=== PATIENT | male | born 1965 | race American Indian/Alaskan Native ===

== ENCOUNTER 2021-10-23 02:59 | Emergency (ER) | payer MEDICAID ==
--- NOTE | 2021-10-23 03:09 | EDM.PDOC ---
<Bjorn Antunez G - Last Filed: 10/23/21 10:03> ED HPI GENERAL MEDICAL PROBLEM - General Chief Complaint: General Stated Complaint: [facility] Time Seen by Provider: 10/23/21 03:00 - Related Data Allergies Allergy/AdvReac Type Severity Reaction Status Date / Time No Known Allergies Allergy Verified 10/23/21 03:08 Home Meds: Home Meds Aspirin [Adult Low Dose Aspirin EC] 81 mg PO DAILY 10/23/21 [History] Cyclobenzaprine [Flexeril] 10 mg PO TID PRN 10/23/21 [History] DULoxetine [Cymbalta] 60 mg PO DAILY 10/23/21 [History] Ferrous Sulfate 325 mg PO DAILY 10/23/21 [History] Fluticasone Propionate [Flovent] 2 puff IH DAILY 10/23/21 [History] Insulin Aspart [NovoLOG] 10 unit SQ WITHMEALSANDBED 10/23/21 [History] Insulin Glargine,Hum.Rec.Anlog [Lantus Solostar] 106 unit SQ ASDIRECTED 10/23/21 [History] Loperamide [Imodium] 2 mg PO Q4H PRN 10/23/21 [History] Magnesium Oxide 400 mg PO DAILY 10/23/21 [History] Melatonin 5 mg PO BEDTIME 10/23/21 [History] Metoprolol Succinate [Toprol XL] 25 mg PO DAILY 10/23/21 [History] Naproxen 500 mg PO DAILY PRN 10/23/21 [History] Rivaroxaban [Xarelto] 20 mg PO DAILY 10/23/21 [History] Rosuvastatin [Crestor] 10 mg PO DAILY 10/23/21 [History] SitaGLIPtin [Januvia] 100 mg PO DAILY 10/23/21 [History] Tamsulosin [Tamsulosin 24 Hr] 0.4 mg PO DAILY 10/23/21 [History] Telmisartan 80 mg PO DAILY 10/23/21 [History] dilTIAZem HCL [Cartia Xt] 120 mg PO DAILY 10/23/21 [History] metFORMIN [Glucophage] 500 mg PO BIDMEALS 10/23/21 [History] oxyCODONE HCl/Acetaminophen [Oxycodone-Acetaminophen 5-325] 1 tab PO BEDTIME 10/23/21 [History] Course - Re-Assessments/Exams Free Text/Narrative Re-Assessment/Exam: 10/23/21 10:03 Gave another dose of regular insulin 14 units sc for persistently elevated BS. Gave a Novolog Pen to take home as there were no pharmacies open and he was nearly out. Family here to burr pick[place]. Departure - Departure Time of Disposition: 10:05 Disposition: Home, Self-Care 01 Clinical Impression: Hyperglycemia, Poorly controlled type 2 diabetes mellitus, Anemia of chronic disease - Discharge Information *PRESCRIPTION DRUG MONITORING PROGRAM REVIEWED*: Not Applicable *COPY OF PRESCRIPTION DRUG MONITORING REPORT IN PATIENT RAH: Not Applicable Instructions: Type 2 Diabetes Mellitus, Diagnosis, Adult Referrals: PCP,None [Primary Care Provider] - Forms: ED Department Discharge Care Plan Goals: It is very important that you follow your medication regimen as prescribed, including your iron pills and insulin. Establish a primary provider in this area as soon as possible. <Richard Melton - Last Filed: 10/23/21 22:09> ED HPI GENERAL MEDICAL PROBLEM - General Source of Information: Reports: Patient, EMS History Limitations: Reports: No Limitations - History of Present Illness INITIAL COMMENTS - FREE TEXT/NARRATIVE: 56-year-old male with longstanding poorly controlled diabetes, presents with hyperglycemia, back spasms and pain in his right hip and leg after forgetting to take his insulin twice daily. He arrives sleepy, mildly hyperventilating, but no fever or chills. O2 saturations are 100%. He was given a 500 cc bolus of fluid and his glucometer checks are "high". He does not usually forget to take his insulin, he does not think he has ever had diabetic ketoacidosis before. After additional history was obtained, we discovered that he was just discharged from [place] 5 days ago after being an inpatient for urosepsis. His family brought him up to [place] to take care of him. Despite his personal history that he is compliant, and reviewing his records from [place] it indicates that he is likely very noncompliant. His hemoglobin on discharge was 8.7. His glucoses were running in the 130s to 200. Onset: Gradual Duration: Hour(s): (Symptoms developed over the last 6 hours) Treatments [employer] COMMUNICATIONS SPECIALIST: Reports: Isotonic Fluid, IV/IO, See EMS Report Generalized Pain Score (Numeric/FACES): 9 ED ROS GENERAL - Review of Systems Review Of Systems: See Below Constitutional: Reports: Malaise, Decreased Appetite. Denies: Fever, Chills HEENT: Denies: Vision Change Respiratory: Denies: Shortness of Breath Cardiovascular: Denies: Chest Pain GI/Abdominal: Reports: Abdominal Pain, Other (Patient has colostomy in place that appears to be working) : Reports: No Symptoms Musculoskeletal: Reports: Back Pain, Leg Pain (Right-sided leg and hip pain) Skin: Reports: Other (Open abrasion around his fingernail on the left hand) Neurological: Reports: Dizziness, Weakness. Denies: Headache ED EXAM, GENERAL - Physical Exam Exam: See Below Exam Limited By: No Limitations General Appearance: Alert, No Apparent Distress, Other (Looks uncomfortable but not distressed) Eye Exam: Right Eye: Other (Conjunctiva are pale,) Throat/Mouth: Normal Inspection Head: Atraumatic Respiratory/Chest: No Respiratory Distress, Lungs Clear Cardiovascular: Regular Rate, Rhythm. No: Extra Beats GI/Abdominal: Tender (Diffuse tenderness to palpation, no focal tenderness) Extremities: Other (Partially amputated left foot, well-healed surgical scars) Neurological: Alert, Oriented Psychiatric: Depressed Mood, Flat Affect Skin Exam: Warm, Dry Course - Vital Signs Last Recorded V/S: Last Vital Signs Temp 97 F 10/23/21 07:08 Pulse 121 H 10/23/21 06:11 Resp 30 H 10/23/21 06:11 BP 111/59 L 10/23/21 07:08 Pulse Ox 98 10/23/21 06:11 - Orders/Labs/Meds Labs: Laboratory Tests 10/23/21 10/23/21 10/23/21 Range/Units 03:01 03:22 03:22 WBC 25.5 H (4.5-11.0) K/uL RBC 2.93 L (4.30-5.90) M/uL Hgb 7.7 L (12.0-15.0) g/dL Hct 25.8 L (40.0-54.0) % MCV 88 (80-98) fL MCH 26 L (27-31) pg MCHC 30 L (32-36) % Plt Count 624 H (150-400) K/uL Neut % (Auto) 83.4 H (36-66) % Lymph % (Auto) 13.3 L (24-44) % Mccone % (Auto) 2.7 (2-6) % Eos % (Auto) 0.3 L (2-4) % Baso % (Auto) 0.3 (0-1) % Puncture Site Rt brachial ABG pH 7.342 L (7.350-7.450) ABG pCO2 28.8 L (35.0-42.0) mmHg ABG pO2 78.4 (75.0-100.0) mmHg ABG HCO3 15.2 L (22.0-26.0) mmol/L ABG Total CO2 14.8 L (23.0-27.0) mmol/L ABG O2 Saturation 94.5 L (95.0-98.0) % ABG O2 Content 9.1 L (15.0-23.0) %vol ABG Base Excess -9.2 mm/L ABG Hemoglobin 7.0 L (13.5-18.0) g/dL ABG Oxyhemoglobin 91.4 % ABG Carboxyhemoglobin 2.0 H (0.0-1.6) % ABG Methemoglobin 1.3 % Lawson Test N/a O2 Delivery Device Room air Sodium 134 L (140-148) mmol/L Potassium 5.6 H (3.6-5.2) mmol/L Chloride 100 (100-108) mmol/L Carbon Dioxide 20 L (21-32) mmol/L Anion Gap 19.6 H (5.0-14.0) mmol/L BUN 43 H (7-18) mg/dL Creatinine 1.7 H (0.8-1.3) mg/dL Est Cr Clr Drug Dosing 49.10 mL/min Estimated GFR (MDRD) 42 L (>60) Glucose 612 H* (74-106) mg/dL POC Glucose (74-106) mg/dL Calcium 7.3 L (8.5-10.1) mg/dL Total Bilirubin 0.3 (0.2-1.0) mg/dL AST 14 L (15-37) U/L ALT 19 (12-78) U/L Alkaline Phosphatase 114 (46-116) U/L Total Protein 6.1 L (6.4-8.2) g/dL Albumin 1.9 L (3.4-5.0) g/dL Globulin 4.2 H (2.3-3.5) g/dL Albumin/Globulin Ratio 0.5 L (1.2-2.2) Urine Color (YELLOW) Urine Appearance (CLEAR) Urine pH (5.0-8.0) Ur Specific [place] (1.008-1.030) Urine Protein (NEGATIVE) mg/dL Urine Glucose (UA) (NEGATIVE) mg/dL Urine Ketones (NEGATIVE) mg/dL Urine Occult Blood (NEGATIVE) Urine Nitrite (NEGATIVE) Urine Bilirubin (NEGATIVE) Urine Urobilinogen (0.2-1.0) EU/dL Ur Leukocyte Esterase (NEGATIVE) Urine RBC (0-5) Urine WBC (0-5) Ur Epithelial Cells Amorphous Sediment Urine Bacteria Urine Mucus Ketones (NEGATIVE) 10/23/21 10/23/21 10/23/21 Range/Units 03:22 03:22 05:33 WBC (4.5-11.0) K/uL RBC (4.30-5.90) M/uL Hgb (12.0-15.0) g/dL Hct (40.0-54.0) % MCV (80-98) fL MCH (27-31) pg MCHC (32-36) % Plt Count (150-400) K/uL Neut % (Auto) (36-66) % Lymph % (Auto) (24-44) % Mccone % (Auto) (2-6) % Eos % (Auto) (2-4) % Baso % (Auto) (0-1) % Puncture Site ABG pH (7.350-7.450) ABG pCO2 (35.0-42.0) mmHg ABG pO2 (75.0-100.0) mmHg ABG HCO3 (22.0-26.0) mmol/L ABG Total CO2 (23.0-27.0) mmol/L ABG O2 Saturation (95.0-98.0) % ABG O2 Content (15.0-23.0) %vol ABG Base Excess mm/L ABG Hemoglobin (13.5-18.0) g/dL ABG Oxyhemoglobin % ABG Carboxyhemoglobin (0.0-1.6) % ABG Methemoglobin % Lawson Test O2 Delivery Device Sodium (140-148) mmol/L Potassium (3.6-5.2) mmol/L Chloride (100-108) mmol/L Carbon Dioxide (21-32) mmol/L Anion Gap (5.0-14.0) mmol/L BUN (7-18) mg/dL Creatinine (0.8-1.3) mg/dL Est Cr Clr Drug Dosing mL/min Estimated GFR (MDRD) (>60) Glucose (74-106) mg/dL POC Glucose 458 H* (74-106) mg/dL Calcium (8.5-10.1) mg/dL Total Bilirubin (0.2-1.0) mg/dL AST (15-37) U/L ALT (12-78) U/L Alkaline Phosphatase (46-116) U/L Total Protein (6.4-8.2) g/dL Albumin (3.4-5.0) g/dL Globulin (2.3-3.5) g/dL Albumin/Globulin Ratio (1.2-2.2) Urine Color Yellow (YELLOW) Urine Appearance Clear (CLEAR) Urine pH 7.0 (5.0-8.0) Ur Specific [place] 1.025 (1.008-1.030) Urine Protein >=300 H (NEGATIVE) mg/dL Urine Glucose (UA) 500 H (NEGATIVE) mg/dL Urine Ketones Trace H (NEGATIVE) mg/dL Urine Occult Blood Trace-intact H (NEGATIVE) Urine Nitrite Negative (NEGATIVE) Urine Bilirubin Negative (NEGATIVE) Urine Urobilinogen 0.2 (0.2-1.0) EU/dL Ur Leukocyte Esterase Negative (NEGATIVE) Urine RBC 0-5 (0-5) Urine WBC 0-5 (0-5) Ur Epithelial Cells Rare Amorphous Sediment Occasional Urine Bacteria Occasional Urine Mucus Occasional Ketones Negative (NEGATIVE) 10/23/21 10/23/21 10/23/21 Range/Units 06:26 06:28 07:31 WBC (4.5-11.0) K/uL RBC (4.30-5.90) M/uL Hgb (12.0-15.0) g/dL Hct (40.0-54.0) % MCV (80-98) fL MCH (27-31) pg MCHC (32-36) % Plt Count (150-400) K/uL Neut % (Auto) (36-66) % Lymph % (Auto) (24-44) % Mccone % (Auto) (2-6) % Eos % (Auto) (2-4) % Baso % (Auto) (0-1) % Puncture Site ABG pH (7.350-7.450) ABG pCO2 (35.0-42.0) mmHg ABG pO2 (75.0-100.0) mmHg ABG HCO3 (22.0-26.0) mmol/L ABG Total CO2 (23.0-27.0) mmol/L ABG O2 Saturation (95.0-98.0) % ABG O2 Content (15.0-23.0) %vol ABG Base Excess mm/L ABG Hemoglobin (13.5-18.0) g/dL ABG Oxyhemoglobin % ABG Carboxyhemoglobin (0.0-1.6) % ABG Methemoglobin % Lawson Test O2 Delivery Device Sodium (140-148) mmol/L Potassium (3.6-5.2) mmol/L Chloride (100-108) mmol/L Carbon Dioxide (21-32) mmol/L Anion Gap (5.0-14.0) mmol/L BUN (7-18) mg/dL Creatinine (0.8-1.3) mg/dL Est Cr Clr Drug Dosing mL/min Estimated GFR (MDRD) (>60) Glucose (74-106) mg/dL POC Glucose 401 H* 401 H 290 H (74-106) mg/dL Calcium (8.5-10.1) mg/dL Total Bilirubin (0.2-1.0) mg/dL AST (15-37) U/L ALT (12-78) U/L Alkaline Phosphatase (46-116) U/L Total Protein (6.4-8.2) g/dL Albumin (3.4-5.0) g/dL Globulin (2.3-3.5) g/dL Albumin/Globulin Ratio (1.2-2.2) Urine Color (YELLOW) Urine Appearance (CLEAR) Urine pH (5.0-8.0) Ur Specific [place] (1.008-1.030) Urine Protein (NEGATIVE) mg/dL Urine Glucose (UA) (NEGATIVE) mg/dL Urine Ketones (NEGATIVE) mg/dL Urine Occult Blood (NEGATIVE) Urine Nitrite (NEGATIVE) Urine Bilirubin (NEGATIVE) Urine Urobilinogen (0.2-1.0) EU/dL Ur Leukocyte Esterase (NEGATIVE) Urine RBC (0-5) Urine WBC (0-5) Ur Epithelial Cells Amorphous Sediment Urine Bacteria Urine Mucus Ketones (NEGATIVE) 10/23/21 10/23/21 Range/Units 08:39 09:35 WBC (4.5-11.0) K/uL RBC (4.30-5.90) M/uL Hgb (12.0-15.0) g/dL Hct (40.0-54.0) % MCV (80-98) fL MCH (27-31) pg MCHC (32-36) % Plt Count (150-400) K/uL Neut % (Auto) (36-66) % Lymph % (Auto) (24-44) % Mccone % (Auto) (2-6) % Eos % (Auto) (2-4) % Baso % (Auto) (0-1) % Puncture Site ABG pH (7.350-7.450) ABG pCO2 (35.0-42.0) mmHg ABG pO2 (75.0-100.0) mmHg ABG HCO3 (22.0-26.0) mmol/L ABG Total CO2 (23.0-27.0) mmol/L ABG O2 Saturation (95.0-98.0) % ABG O2 Content (15.0-23.0) %vol ABG Base Excess mm/L ABG Hemoglobin (13.5-18.0) g/dL ABG Oxyhemoglobin % ABG Carboxyhemoglobin (0.0-1.6) % ABG Methemoglobin % Lawson Test O2 Delivery Device Sodium (140-148) mmol/L Potassium (3.6-5.2) mmol/L Chloride (100-108) mmol/L Carbon Dioxide (21-32) mmol/L Anion Gap (5.0-14.0) mmol/L BUN (7-18) mg/dL Creatinine (0.8-1.3) mg/dL Est Cr Clr Drug Dosing mL/min Estimated GFR (MDRD) (>60) Glucose (74-106) mg/dL POC Glucose 272 H 273 H (74-106) mg/dL Calcium (8.5-10.1) mg/dL Total Bilirubin (0.2-1.0) mg/dL AST (15-37) U/L ALT (12-78) U/L Alkaline Phosphatase (46-116) U/L Total Protein (6.4-8.2) g/dL Albumin (3.4-5.0) g/dL Globulin (2.3-3.5) g/dL Albumin/Globulin Ratio (1.2-2.2) Urine Color (YELLOW) Urine Appearance (CLEAR) Urine pH (5.0-8.0) Ur Specific [place] (1.008-1.030) Urine Protein (NEGATIVE) mg/dL Urine Glucose (UA) (NEGATIVE) mg/dL Urine Ketones (NEGATIVE) mg/dL Urine Occult Blood (NEGATIVE) Urine Nitrite (NEGATIVE) Urine Bilirubin (NEGATIVE) Urine Urobilinogen (0.2-1.0) EU/dL Ur Leukocyte Esterase (NEGATIVE) Urine RBC (0-5) Urine WBC (0-5) Ur Epithelial Cells Amorphous Sediment Urine Bacteria Urine Mucus Ketones (NEGATIVE) Meds: Medications Discontinued Medications Generic Name Dose Route Start Last Admin Trade Name Freq PRN Reason Stop Dose Admin Dextrose/Water 50 ml 10/23/21 06:51 50% Dextrose In Water 50 Ml Syringe IVPUSH ASDIRECTED PRN Hypoglycemia Dextrose/Water 50 ml 10/23/21 08:44 50% Dextrose In Water 50 Ml Syringe IVPUSH ASDIRECTED PRN Hypoglycemia Glucagon 1 mg 10/23/21 06:51 Glucagon,Human Recombinant 1 Mg Vial IM ASDIRECTED PRN Hypoglycemia Glucagon 1 mg 10/23/21 08:44 Glucagon,Human Recombinant 1 Mg Vial IM ASDIRECTED PRN Hypoglycemia Sodium Chloride 1,000 mls @ 1,000 mls/hr 10/23/21 03:15 10/23/21 04:54 Normal Saline IV 500 mls/hr ASDIRECTED DANIS Administration Insulin Regular in 0.9 % NACL 100 unit in 100 mls @ 14 mls/hr 10/23/21 04:15 10/23/21 04:27 Myxredlin In Ns 100 Unit/100 Ml IV 14 mls/hr ASDIRECTED DANIS Administration Sodium Chloride 1,000 mls @ 500 mls/hr 10/23/21 05:00 Normal Saline IV ASDIRECTED DANIS Insulin Glargine 40 units 10/23/21 04:33 10/23/21 04:49 Insulin Glargine,Human Rec. Analog 100 Units/Ml 3 Ml Pen SUBCUT 10/23/21 04:34 40 units ONETIME ONE Administration Insulin Glargine 80 units 10/23/21 06:47 10/23/21 07:02 Insulin Glargine,Human Rec. Analog 100 Units/Ml 3 Ml Pen SUBCUT 10/23/21 06:48 80 units ONETIME ONE Administration Insulin Human Lispro 14 unit 10/23/21 10:30 10/23/21 10:13 Insulin Lispro 100 Unit/Ml 3 Ml Kwikpen SUBCUT 10/23/21 10:31 14 units ONETIME ONE Administration Insulin Human Regular 14 unit 10/23/21 04:10 10/23/21 04:26 Insulin Regular, Human 100 Units/Ml 3 Ml Vial IVPUSH 10/23/21 04:11 14 units ONETIME ONE Administration Insulin Human Regular 14 unit 10/23/21 06:51 10/23/21 07:01 Insulin Regular, Human 100 Units/Ml 3 Ml Vial IVPUSH 10/23/21 06:52 14 units ONETIME ONE Administration Insulin Human Regular 14 unit 10/23/21 08:44 10/23/21 08:50 Insulin Regular, Human 100 Units/Ml 3 Ml Vial SUBCUT 10/23/21 08:45 14 units ONETIME ONE Administration Sodium Chloride 500 ml 10/23/21 09:00 Sodium Chloride 0.9% 10 Ml Sdv IV TID [facility] - Re-Assessments/Exams Free Text/Narrative Re-Assessment/Exam: 10/23/21 06:53 Patient was evaluated for diabetic ketoacidosis which was not present, ketones were negative, blood gases were stable Patient was given aggressive fluid replacement, given 14 units of IV regular insulin and started on a 14 unit an hour drip. We received more hospital records from [place] and these were reviewed. It is concerning that his white count returned elevated 25,000 and hemoglobin is 7 7, but these are within ranges of where he was running in [place]. He is not febrile at this time. Patient was monitored through the night while on the insulin drip and his glucose normalized. I discussed his condition with his family in the morning, he is not in diabetic ketoacidosis and had hyperglycemia due to noncompliance. I also discussed his condition with the hospitalist service, they felt admission was not required. Care was turned over to Dr. Antunez to continue monitoring until the family arrived to take the patient home.
[2021-10-23] MEDS: Sodium Chloride 0.9% 1,000 ML IV SCH ×2 (03:24→04:54)
[2021-10-23] MEDS ORDERED: Insulin Regular, Human 100 Units/ML 3 ML Vial IVPUSH ONE ×2 (04:10→06:51)
[2021-10-23] MEDS ORDERED: Insulin Glargine,Human Rec. Analog 100 Units/ML 3 ML Pen SUBCUT ONE ×2 (04:33→06:47)
[2021-10-23] MEDS ORDERED: Sodium Chloride 0.9% 1,000 ML IV SCH (05:00)
[2021-10-23] MEDS ORDERED: 50% Dextrose in Water 50 ML Syringe IVPUSH PRN ×2 (06:51→08:44)
[2021-10-23] MEDS ORDERED: Glucagon,Human Recombinant 1 MG Vial IM PRN ×2 (06:51→08:44)
[2021-10-23] MEDS ORDERED: Insulin Regular, Human 100 Units/ML 3 ML Vial SUBCUT ONE (08:44)
[2021-10-23] MEDS ORDERED: Sodium Chloride 0.9% 10 ML SDV IV SCH (09:00)
[2021-10-23] MEDS ORDERED: Insulin Lispro 100 Unit/ML 3 ML KwikPen SUBCUT ONE (10:30)
== END 2021-10-23 10:24 | disposition home or self-care (01) ==
LOC: JP.ED 02:59
DX: E11.65 Type 2 diabetes mellitus with hyperglycemia (principal); E11.22 Type 2 diabetes mellitus with diabetic chronic kidney disease; N18.9 Chronic kidney disease, unspecified; D63.1 Anemia in chronic kidney disease; Z79.82 Long term (current) use of aspirin; Z79.01 Long term (current) use of anticoagulants; Z79.4 Long term (current) use of insulin
CPT/HCPCS: 36415; 36600; 80053; 81001; 82009; 82803; 82947; 85025; 99285; J1815; J7030

== ENCOUNTER 2021-10-24 03:28 | Inpatient (IN) | payer MEDICAID ==
--- NOTE | 2021-10-24 03:53 | EDM.PDOC ---
ED HPI GENERAL MEDICAL PROBLEM - General Stated Complaint: [facility] Time Seen by Provider: 10/24/21 03:30 Source of Information: Reports: Patient, EMS History Limitations: Reports: No Limitations - History of Present Illness INITIAL COMMENTS - FREE TEXT/NARRATIVE: 56-year-old male who is here this morning with hyperglycemia and weakness along with chronic pain issues, was found to have a hemoglobin of 7.7 and an elevated white count but afebrile. He responded well to insulin therapy including a bolus and insulin drip for several hours and was discharged home. He called EMS tonight because he was so dizzy, lightheaded, generalized malaise and his glucose levels were climbing again despite taking his insulin today. His colostomy bag was full again and leaking, it looked dark but he is on iron supplements. He is having his same chronic pain issues. His daughter moved him into the house earlier this week to take care of them but now admits she cannot take care of him because he is too much work. Onset: Unknown/Unsure Worsens with: Reports: Other (Activity causes increased weakness and dizziness) Associated Symptoms: Reports: Malaise, Shortness of Breath (Some shortness of breath with activity), Weakness. Denies: Confusion Right Posterior Buttock Pain Score (Numeric/FACES): 9 - Related Data Allergies Allergy/AdvReac Type Severity Reaction Status Date / Time No Known Allergies Allergy Verified 10/24/21 04:05 Home Meds: Home Meds Aspirin [Adult Low Dose Aspirin EC] 81 mg PO DAILY 10/23/21 [History] Cyclobenzaprine [Flexeril] 10 mg PO TID PRN 10/23/21 [History] DULoxetine [Cymbalta] 60 mg PO DAILY 10/23/21 [History] Ferrous Sulfate 325 mg PO DAILY 10/23/21 [History] Fluticasone Propionate [Flovent] 2 puff IH DAILY 10/23/21 [History] Insulin Aspart [NovoLOG] 10 unit SQ WITHMEALSANDBED 10/23/21 [History] Insulin Glargine,Hum.Rec.Anlog [Lantus Solostar] 106 unit SQ ASDIRECTED 10/23/21 [History] Loperamide [Imodium] 2 mg PO Q4H PRN 10/23/21 [History] Magnesium Oxide 400 mg PO DAILY 10/23/21 [History] Melatonin 5 mg PO BEDTIME 10/23/21 [History] Metoprolol Succinate [Toprol XL] 25 mg PO DAILY 10/23/21 [History] Naproxen 500 mg PO DAILY PRN 10/23/21 [History] Rivaroxaban [Xarelto] 20 mg PO DAILY 10/23/21 [History] Rosuvastatin [Crestor] 10 mg PO DAILY 10/23/21 [History] SitaGLIPtin [Januvia] 100 mg PO DAILY 10/23/21 [History] Tamsulosin [Tamsulosin 24 Hr] 0.4 mg PO DAILY 10/23/21 [History] Telmisartan 80 mg PO DAILY 10/23/21 [History] dilTIAZem HCL [Cartia Xt] 120 mg PO DAILY 10/23/21 [History] metFORMIN [Glucophage] 500 mg PO BIDMEALS 10/23/21 [History] oxyCODONE HCl/Acetaminophen [Oxycodone-Acetaminophen 5-325] 1 tab PO BEDTIME 10/23/21 [History] Past Medical History Cardiovascular History: Reports: Hypertension Genitourinary History: Reports: Diabetic Nephropathy, Other (See Below) Other Genitourinary History: SANG 2020 Musculoskeletal History: Reports: Amputation, Back Pain, Chronic Neurological History: Reports: Neuropathy, Diabetic, TIA Endocrine/Metabolic History: Reports: Diabetes, Type II, IDDM, Obesity/BMI 30+, Other (See Below) Other Endocrine/Metabolic History: Hyponatremia, hypomagnesemia, hypocalcemia 2020 Hematologic History: Reports: Anemia Oncologic (Cancer) History: Reports: Colon Dermatologic History: Reports: Decubitus Ulcer - Infectious Disease History Infectious Disease History: Reports: Chicken Pox, Measles, MRSA, Mumps - Past Surgical History GI Surgical History: Reports: Cholecystectomy, Colostomy, Other (See Below) Musculoskeletal Surgical History: Reports: Amputation Other Musculoskeletal Surgeries/Procedures:: left toes Social & Family History - Caffeine Use Caffeine Use: Reports: None ED ROS GENERAL - Review of Systems Review Of Systems: See Below Constitutional: Reports: Malaise. Denies: Fever, Chills HEENT: Denies: Vision Change Respiratory: Reports: Shortness of Breath Cardiovascular: Reports: Lightheadedness. Denies: Chest Pain, Palpitations GI/Abdominal: Reports: Abdominal Pain, Nausea. Denies: Vomiting : Reports: No Symptoms Musculoskeletal: Reports: Back Pain, Other (Buttock pain which is chronic, leg pain) Skin: Denies: Erythema Neurological: Reports: Dizziness, Weakness. Denies: Headache ED EXAM, GENERAL - Physical Exam Exam: See Below Exam Limited By: No Limitations General Appearance: Alert, No Apparent Distress (On arrival to the emergency room the patient looks fairly comfortable, he looks really pale) Eye Exam: Bilateral Eye: PERRL, Other (Very pale conjunctiva) Head: Atraumatic Respiratory/Chest: No Respiratory Distress, Wheezing (A few scattered expiratory wheezes) Cardiovascular: Regular Rate, Rhythm, Tachycardia (Mild tachycardia) GI/Abdominal: Soft, Tender (Does react diffusely with some tenderness to palpation but no focal guarding. Stool in the colostomy looks dark) Neurological: Alert, Oriented, Other (Global weakness) Psychiatric: Flat Affect Skin Exam: Warm, Dry, Pallor Course - Vital Signs Last Recorded V/S: Last Vital Signs Temp 98.3 F 10/24/21 17:31 Pulse 90 10/24/21 17:31 Resp 17 10/24/21 17:31 BP 116/69 10/24/21 17:31 Pulse Ox 96 10/24/21 15:00 - Orders/Labs/Meds Orders: Active Orders 24 hr Category Date Time Status Insert Sahni Catheter [Insert Urinary Catheter] [OM.PC] Care 10/24/21 05:15 Ordered Q24H Urinary Catheter Assessment [RC] Q12H Care 10/24/21 05:08 Active Chest 1V Frontal [CR] Stat Exams 10/24/21 05:33 Taken PATIENT RETYPE [BBK] Stat Lab 10/24/21 04:01 Results RED BLOOD CELLS LP [BBK] Stat Lab 10/24/21 04:01 Results TYPE AND SCREEN [BBK] Stat Lab 10/24/21 04:01 Results Medication Orders Acetaminophen (Acetaminophen 325 Mg Tab) 650 mg PO Q4H PRN PRN Reason: Pain (Mild 1-3)/fever Albuterol (Albuterol 0.083% 2.5 Mg/3 Ml Neb Soln) 2.5 mg NEB Q4H PRN PRN Reason: Shortness Of Breath/wheezing Aspirin (Aspirin 81 Mg Tab.Ec) 81 mg PO DAILY DANIS Last Admin: 10/24/21 09:18 Dose: 81 mg Documented by: YVONNE Cyclobenzaprine HCl (Cyclobenzaprine 10 Mg Tab) 10 mg PO TID PRN PRN Reason: Spasms Duloxetine HCl (Duloxetine 30 Mg Cap) 60 mg PO DAILY [facility] Last Admin: 10/24/21 08:35 Dose: 60 mg Documented by: YVONNE Gabapentin (Gabapentin 300 Mg Cap) 300 mg PO TID [facility] Last Admin: 10/24/21 13:31 Dose: 300 mg Documented by: Admin: 10/24/21 08:36 Dose: 300 mg Documented by: YVONNE Hydromorphone HCl (Hydromorphone 1 Mg/Ml Syringe) 0.5 mg IVPUSH Q2H PRN PRN Reason: Pain (severe 7-10) Last Admin: 10/24/21 08:04 Dose: 0.5 mg Documented by: YVONNE Sodium Chloride (Normal Saline) 1,000 mls @ 100 mls/hr IV ASDIRECTED [facility] Last Admin: 10/24/21 08:03 Dose: 100 mls/hr Documented by: YVONNE Insulin Glargine (Insulin Glargine,Human Rec. Analog 100 Units/Ml 3 Ml Pen) 106 units SUBCUT DAILY [facility] Last Admin: 10/24/21 11:10 Dose: 106 units Documented by: YVONNE Saraviaigned by: DEVAUGHN Insulin Human Lispro (Insulin Lispro 100 Unit/Ml 3 Ml Kwikpen) 10 unit SUBCUT TIDMEALS [facility] Last Admin: 10/24/21 17:29 Dose: Not Given Documented by: Admin: 10/24/21 11:13 Dose: Not Given Documented by: Admin: 10/24/21 08:39 Dose: Not Given Documented by: YVONNE Insulin Human Lispro (Insulin Lispro 100 Unit/Ml 3 Ml Kwikpen) 0 unit SUBCUT QIDACANDBED [facility]; Protocol Last Admin: 10/24/21 17:27 Dose: 6 units Documented by: DAKSHA Cosigned by: MANDO Admin: 10/24/21 11:12 Dose: 8 units Documented by: YVONNE Cosigned by: DEVAUGHN Lorazepam (Lorazepam 2 Mg/Ml Sdv) 0.5 mg IVPUSH Q4H PRN PRN Reason: Nausea/Vomiting Magnesium Hydroxide (Magnesium Hydroxide 400 Mg/5 Ml Susp 30 Ml Cup) 30 ml PO Q12H PRN PRN Reason: Constipation Melatonin (Melatonin 3 Mg Tab) 9 mg PO BEDTIME [facility] Ondansetron HCl (Ondansetron 4 Mg/2 Ml Sdv) 4 mg IV Q6H PRN PRN Reason: Nausea/Vomiting Ondansetron HCl (Ondansetron 4 Mg Tab.Dis) 4 mg PO Q6H PRN PRN Reason: Nausea able to take PO Oxycodone/Acetaminophen (Acetaminophen/Oxycodone 325-5 Mg Tab) 1 tab PO Q4H PRN PRN Reason: Pain (moderate 4-6) Last Admin: 10/24/21 13:38 Dose: 1 tab Documented by: YVONNE Pantoprazole Sodium (Pantoprazole 40 Mg Vial) 40 mg IV Q12H [facility] Last Admin: 10/24/21 17:19 Dose: 40 mg Documented by: DAKSHA Rosuvastatin Calcium (Rosuvastatin 10 Mg Tab) 10 mg PO DAILY [facility] Last Admin: 10/24/21 08:35 Dose: 10 mg Documented by: YVONNE Senna/Docusate Sodium (Docusate Sodium/Sennosides 50-8.6 Mg Tab) 1 tab PO BID PRN PRN Reason: Constipation Tamsulosin HCl (Tamsulosin 0.4 Mg Cap.Er) 0.4 mg PO DAILY [facility] Last Admin: 10/24/21 08:36 Dose: 0.4 mg Documented by: YVONNE Labs: Laboratory Tests 10/24/21 10/24/21 10/24/21 Range/Units 04:01 04:01 04:01 WBC 27.4 H (4.5-11.0) K/uL RBC 1.93 L (4.30-5.90) M/uL Hgb 5.2 L* D (12.0-15.0) g/dL Hct 16.8 L (40.0-54.0) % MCV 87 (80-98) fL MCH 27 (27-31) pg MCHC 31 L (32-36) % Plt Count 501 H (150-400) K/uL Neut % (Auto) 86.4 H (36-66) % Lymph % (Auto) 10.1 L (24-44) % [place] % (Auto) 2.9 (2-6) % Eos % (Auto) 0.3 L (2-4) % Baso % (Auto) 0.3 (0-1) % PT (9.2-10.6) sec INR Sodium 135 L (140-148) mmol/L Potassium 5.6 H (3.6-5.2) mmol/L Chloride 105 (100-108) mmol/L Carbon Dioxide 14 L (21-32) mmol/L Anion Gap 21.6 H (5.0-14.0) mmol/L BUN 69 H D (7-18) mg/dL Creatinine 1.6 H (0.8-1.3) mg/dL Est Cr Clr Drug Dosing 47.07 mL/min Estimated GFR (MDRD) 45 L (>60) Glucose 411 H* (74-106) mg/dL POC Glucose (74-106) mg/dL Calcium 7.2 L (8.5-10.1) mg/dL Total Bilirubin 0.2 (0.2-1.0) mg/dL AST 10 L (15-37) U/L ALT 13 (12-78) U/L Alkaline Phosphatase 66 (46-116) U/L Total Protein 5.6 L (6.4-8.2) g/dL Albumin 1.8 L (3.4-5.0) g/dL Globulin 3.8 H (2.3-3.5) g/dL Albumin/Globulin Ratio 0.5 L (1.2-2.2) Influenza Type A RNA (NEGATIVE) RSV RNA (INAAT) (NEGATIVE) Influenza Type B RNA (NEGATIVE) SARS-CoV-2 RNA (ЕКАТЕРИНА) (NEGATIVE) Blood Type O POSITIVE Gel Antibody Screen Negative Crossmatch See Detail 10/24/21 10/24/21 10/24/21 Range/Units 04:01 05:59 06:07 WBC (4.5-11.0) K/uL RBC (4.30-5.90) M/uL Hgb (12.0-15.0) g/dL Hct (40.0-54.0) % MCV (80-98) fL MCH (27-31) pg MCHC (32-36) % Plt Count (150-400) K/uL Neut % (Auto) (36-66) % Lymph % (Auto) (24-44) % [place] % (Auto) (2-6) % Eos % (Auto) (2-4) % Baso % (Auto) (0-1) % PT 11.3 H (9.2-10.6) sec INR 1.1 Sodium (140-148) mmol/L Potassium (3.6-5.2) mmol/L Chloride (100-108) mmol/L Carbon Dioxide (21-32) mmol/L Anion Gap (5.0-14.0) mmol/L BUN (7-18) mg/dL Creatinine (0.8-1.3) mg/dL Est Cr Clr Drug Dosing mL/min Estimated GFR (MDRD) (>60) Glucose (74-106) mg/dL POC Glucose 243 H (74-106) mg/dL Calcium (8.5-10.1) mg/dL Total Bilirubin (0.2-1.0) mg/dL AST (15-37) U/L ALT (12-78) U/L Alkaline Phosphatase (46-116) U/L Total Protein (6.4-8.2) g/dL Albumin (3.4-5.0) g/dL Globulin (2.3-3.5) g/dL Albumin/Globulin Ratio (1.2-2.2) Influenza Type A RNA Negative (NEGATIVE) RSV RNA (INAAT) Negative (NEGATIVE) Influenza Type B RNA Negative (NEGATIVE) SARS-CoV-2 RNA (ЕКАТЕРИНА) Negative (NEGATIVE) Blood Type Gel Antibody Screen Crossmatch Meds: Medications Generic Name Dose Route Start Last Admin Trade Name Freq PRN Reason Stop Dose Admin Acetaminophen 650 mg 10/24/21 07:29 Acetaminophen 325 Mg Tab PO Q4H PRN Pain (Mild 1-3)/fever Albuterol 2.5 mg 10/24/21 07:29 Albuterol 0.083% 2.5 Mg/3 Ml Neb Soln NEB Q4H PRN Shortness Of Breath/wheezing Aspirin 81 mg 10/24/21 09:00 10/24/21 09:18 Aspirin 81 Mg Tab.Ec PO 81 mg DAILY DANIS Administration Cyclobenzaprine HCl 10 mg 10/24/21 07:29 Cyclobenzaprine 10 Mg Tab PO TID PRN Spasms Duloxetine HCl 60 mg 10/24/21 09:00 10/24/21 08:35 Duloxetine 30 Mg Cap PO 60 mg DAILY DANIS Administration Gabapentin 300 mg 10/24/21 09:00 10/24/21 13:31 Gabapentin 300 Mg Cap PO 300 mg TID [facility] Administration Hydromorphone HCl 0.5 mg 10/24/21 07:29 10/24/21 08:04 Hydromorphone 1 Mg/Ml Syringe IVPUSH 0.5 mg Q2H PRN Administration Pain (severe 7-10) Sodium Chloride 1,000 mls @ 100 mls/hr 10/24/21 07:29 10/24/21 08:03 Normal Saline IV 100 mls/hr ASDIRECTED [facility] Administration Insulin Glargine 106 units 10/24/21 09:00 10/24/21 11:10 Insulin Glargine,Human Rec. Analog 100 Units/Ml 3 Ml Pen SUBCUT 106 units DAILY [facility] Administration Insulin Human Lispro 10 unit 10/24/21 08:00 10/24/21 17:29 Insulin Lispro 100 Unit/Ml 3 Ml Kwikpen SUBCUT Not Given TIDMEALS [facility] Insulin Human Lispro 0 unit 10/24/21 11:00 10/24/21 17:27 Insulin Lispro 100 Unit/Ml 3 Ml Kwikpen SUBCUT 6 units QIDACANDBED [facility] Administration Protocol Lorazepam 0.5 mg 10/24/21 07:29 Lorazepam 2 Mg/Ml Sdv IVPUSH Q4H PRN Nausea/Vomiting Magnesium Hydroxide 30 ml 10/24/21 07:29 Magnesium Hydroxide 400 Mg/5 Ml Susp 30 Ml Cup PO Q12H PRN Constipation Melatonin 9 mg 10/24/21 21:00 Melatonin 3 Mg Tab PO BEDTIME [facility] Ondansetron HCl 4 mg 10/24/21 07:29 Ondansetron 4 Mg/2 Ml Sdv IV Q6H PRN Nausea/Vomiting Ondansetron HCl 4 mg 10/24/21 07:29 Ondansetron 4 Mg Tab.Dis PO Q6H PRN Nausea able to take PO Oxycodone/Acetaminophen 1 tab 10/24/21 07:29 10/24/21 13:38 Acetaminophen/Oxycodone 325-5 Mg Tab PO 1 tab Q4H PRN Administration Pain (moderate 4-6) Pantoprazole Sodium 40 mg 10/24/21 18:00 10/24/21 17:19 Pantoprazole 40 Mg Vial IV 40 mg Q12H DANIS Administration Rosuvastatin Calcium 10 mg 10/24/21 09:00 10/24/21 08:35 Rosuvastatin 10 Mg Tab PO 10 mg DAILY DANIS Administration Senna/Docusate Sodium 1 tab 10/24/21 07:29 Docusate Sodium/Sennosides 50-8.6 Mg Tab PO BID PRN Constipation Tamsulosin HCl 0.4 mg 10/24/21 09:00 10/24/21 08:36 Tamsulosin 0.4 Mg Cap.Er PO 0.4 mg DAILY DANIS Administration Discontinued Medications Generic Name Dose Route Start Last Admin Trade Name Freq PRN Reason Stop Dose Admin Aspirin 243 mg 10/24/21 11:00 10/24/21 10:47 Aspirin 81 Mg Tab.Chew PO 10/24/21 11:01 243 mg ONETIME ONE Administration Al Hydroxide/Mg Hydroxide 15 0 ml 10/24/21 10:15 10/24/21 10:00 ml/ Lidocaine HCl 15 ml PO 10/24/21 10:16 1 ml ONETIME ONE Administration Dextrose/Water 50 ml 10/24/21 09:09 10/24/21 09:15 50% Dextrose In Water 50 Ml Syringe IVPUSH 10/24/21 09:10 50 ml ONETIME ONE Administration Dextrose/Water Confirm 10/24/21 09:12 10/24/21 09:15 50% Dextrose In Water 50 Ml Syringe Administered 10/24/21 09:13 Not Given Dose 50 ml .ROUTE .STK-MED ONE Hydromorphone HCl 1 mg 10/24/21 10:15 10/24/21 09:59 Hydromorphone 1 Mg/Ml Syringe IVPUSH 10/24/21 10:16 1 mg ONETIME ONE Administration Sodium Chloride 1,000 mls @ 500 mls/hr 10/24/21 04:30 10/24/21 04:18 Normal Saline IV 500 mls/hr ASDIRECTED DANIS Administration Sodium Chloride 1,000 mls @ 1,000 mls/hr 10/24/21 06:30 10/24/21 06:27 Normal Saline IV 1,000 mls/hr ASDIRECTED DANIS Administration Insulin Human Regular 112 unit 10/24/21 05:03 10/24/21 05:23 Insulin Regular, Human 100 Units/Ml 3 Ml Vial IVPUSH 10/24/21 05:04 112 units ONETIME ONE Administration Lorazepam 1 mg 10/24/21 05:52 10/24/21 05:57 Lorazepam 2 Mg/Ml Sdv IVPUSH 10/24/21 05:53 1 mg ONETIME ONE Administration Pantoprazole Sodium 40 mg 10/24/21 05:08 10/24/21 05:22 Pantoprazole 40 Mg Vial IVPUSH 10/24/21 05:09 40 mg ONETIME ONE Administration - Re-Assessments/Exams Free Text/Narrative Re-Assessment/Exam: 10/24/21 05:02 Hemoccult was taken from the dark stool in the colostomy bag when it was clean. CBC and CMP were repeated from earlier today. Hemoglobin is dropped to 5.2 so 2 units of packed RBCs were typed and crossed and transfusion initiated with the consent of the patient. 10/24/21 05:03 Hemoccult was positive. Glucose was 411 so the patient was given 12 units of insulin IV. 10/24/21 05:05 Patient claimed that he was having difficulty passing urine today, bladder scan revealed over 800 cc urine so Sahni was placed in a UA obtained. INR was ordered. 10/24/21 05:09 Kidney function was stable from this morning, GFR 45. Anion gap and CO2 are slightly elevated from this morning. I discussed his case with Dr. Ricketts, he will see the patient to admit to ICU for GI bleed and uncontrolled type 2 diabetes. 10/24/21 05:53 Shortly after giving the Protonix, the patient developed an acute anxiety attack despite his oxygen levels being at 100% and his lungs remain clear. We attempted to get a chest x-ray but he would not tolerate the procedure until we gave him some Ativan to calm him down. Chest x-ray is pending. Departure - Departure Time of Disposition: 07:52 Disposition: Admitted As Inpatient 67 Clinical Impression: Anemia due to gastrointestinal blood loss, Poorly controlled type 2 diabetes mellitus, Acute urinary retention - Discharge Information Sepsis Event Note (ED) - Focused Exam Vital Signs: Vital Signs Temp Pulse Resp BP Pulse Ox 10/24/21 06:34 105 H 20 127/73 99 10/24/21 06:31 98.1 F 105 H 14 112/70 98 10/24/21 06:29 97.5 F 107 H 25 H 127/73 96 10/24/21 06:22 100 19 77/54 L 98 10/24/21 06:17 97.7 F 112 H 17 70/28 L 98 10/24/21 06:09 113 H 18 92/44 L 97 10/24/21 05:47 115 H 86/40 L - My Orders Last 24 Hours: My Active Orders 10/24/21 04:01 PATIENT RETYPE [BBK] Stat RED BLOOD CELLS LP [BBK] Stat TYPE AND SCREEN [BBK] Stat 10/24/21 05:08 Urinary Catheter Assessment [RC] Q12H 10/24/21 05:15 Insert Sahni Catheter [Insert Urinary Catheter] [OM.PC] Q24H 10/24/21 05:33 Chest 1V Frontal [CR] Stat - Assessment/Plan Last 24 Hours: My Active Orders 10/24/21 04:01 PATIENT RETYPE [BBK] Stat RED BLOOD CELLS LP [BBK] Stat TYPE AND SCREEN [BBK] Stat 10/24/21 05:08 Urinary Catheter Assessment [RC] Q12H 10/24/21 05:15 Insert Sahni Catheter [Insert Urinary Catheter] [OM.PC] Q24H 10/24/21 05:33 Chest 1V Frontal [CR] Stat
[2021-10-24] MEDS ORDERED: Sodium Chloride 0.9% 1,000 ML IV SCH ×3 (04:30→07:29)
[2021-10-24] MEDS ORDERED: Insulin Regular, Human 100 Units/ML 3 ML Vial IVPUSH ONE (05:03)
[2021-10-24] MEDS ORDERED: Pantoprazole 40 MG Vial IVPUSH ONE (05:08)
[2021-10-24] MEDS ORDERED: LORazepam 2 MG/ML SDV IVPUSH ONE (05:52)
[2021-10-24 06:32] LABS: CORONAVIRUS COVID-19 NAA NEGATIVE (NEGATIVE)
--- NOTE | 2021-10-24 07:06 | PCM.HP.2 ---
H&P History of Present Illness - General Date of Service: 10/24/21 Admit Problem/Dx: Admission Diagnosis/Problem Admission Diagnosis/Problem Gastrointestinal hemorrhage Source of Information: Patient, Provider History Limitations: Reports: No Limitations - History of Present Illness Initial Comments - Free Text/Narative: CC: weak and dizzy HPI: Zafar presents to the emergency room today with weakness and dizziness. He was seen in the emergency room yesterday for high blood sugars. These were managed with insulin and he felt well enough to go home. Overnight he developed fairly sudden onset of weakness and dizziness. He did note that the output in his colostomy was dark brown or black which was different than it had been. He was not experiencing any abdominal pain or having nausea. He did not report any chest pain. No dyspnea or diaphoresis. He has not had any fevers recently. Blood sugars have been running high at home despite large doses of insulin yest erday. Appetite has been okay. Work-up in the emergency room revealed a 2 g drop in his hemoglobin down to below 6 from 7.7 yesterday. He has an increase in his creatinine from baseline up to 1.6 with a baseline of around 1. He has hyperglycemia. He is receiving 1 unit of blood and will be receiving a second unit of blood after this 1 finishes. He has received IV fluids. Blood pressures initially were on the low side but have improved with IV fluids and the blood transfusions. Right Posterior Buttock Pain Score (Numeric/FACES): 9 - Related Data Allergies/Adverse Reactions: Allergies Allergy/AdvReac Type Severity Reaction Status Date / Time No Known Allergies Allergy Verified 10/24/21 04:05 Home Medications: Home Meds Aspirin [Adult Low Dose Aspirin EC] 81 mg PO DAILY 10/23/21 [History] Cyclobenzaprine [Flexeril] 10 mg PO TID PRN 10/23/21 [History] DULoxetine [Cymbalta] 60 mg PO DAILY 10/23/21 [History] Ferrous Sulfate 325 mg PO DAILY 10/23/21 [History] Fluticasone Propionate [Flovent] 2 puff IH DAILY 10/23/21 [History] Insulin Aspart [NovoLOG] 10 unit SQ WITHMEALSANDBED 10/23/21 [History] Insulin Glargine,Hum.Rec.Anlog [Lantus Solostar] 106 unit SQ ASDIRECTED 10/23/21 [History] Loperamide [Imodium] 2 mg PO Q4H PRN 10/23/21 [History] Magnesium Oxide 400 mg PO DAILY 10/23/21 [History] Melatonin 5 mg PO BEDTIME 10/23/21 [History] Metoprolol Succinate [Toprol XL] 25 mg PO DAILY 10/23/21 [History] Naproxen 500 mg PO DAILY PRN 10/23/21 [History] Rivaroxaban [Xarelto] 20 mg PO DAILY 10/23/21 [History] Rosuvastatin [Crestor] 10 mg PO DAILY 10/23/21 [History] SitaGLIPtin [Januvia] 100 mg PO DAILY 10/23/21 [History] Tamsulosin [Tamsulosin 24 Hr] 0.4 mg PO DAILY 10/23/21 [History] Telmisartan 80 mg PO DAILY 10/23/21 [History] dilTIAZem HCL [Cartia Xt] 120 mg PO DAILY 10/23/21 [History] metFORMIN [Glucophage] 500 mg PO BIDMEALS 10/23/21 [History] oxyCODONE HCl/Acetaminophen [Oxycodone-Acetaminophen 5-325] 1 tab PO BEDTIME 10/23/21 [History] Past Medical History Cardiovascular History: Reports: Hypertension Genitourinary History: Reports: Diabetic Nephropathy, Pyelonephritis, Other (See Below) Other Genitourinary History: SANG 2020 Musculoskeletal History: Reports: Amputation, Back Pain, Chronic Neurological History: Reports: Neuropathy, Diabetic, TIA Endocrine/Metabolic History: Reports: Diabetes, Type II, IDDM, Obesity/BMI 30+, Other (See Below) Other Endocrine/Metabolic History: Hyponatremia, hypomagnesemia, hypocalcemia 2020 Hematologic History: Reports: Anemia, Anticoagulation Therapy Oncologic (Cancer) History: Reports: Colon Dermatologic History: Reports: Decubitus Ulcer - Infectious Disease History Infectious Disease History: Reports: Chicken Pox, Measles, MRSA, Mumps - Past Surgical History GI Surgical History: Reports: Cholecystectomy, Colostomy, Other (See Below) Musculoskeletal Surgical History: Reports: Amputation Other Musculoskeletal Surgeries/Procedures:: left toes Social & Family History - Family History Cardiac: Denies: CAD - Tobacco Use Tobacco Use Status *Q: Never Tobacco User - Caffeine Use Caffeine Use: Reports: None - Alcohol Use Alcohol Use History: No Alcohol Use in Last Twelve Months: No - Recreational Drug Use Recreational Drug Use: No H&P Review of Systems - Review of Systems: Review Of Systems: See Below Free Text/Narrative: A complete 12 point review of systems was obtained. Pertinent positives and negatives are noted in the history of present illness. All other systems were reviewed and were negative except as noted. Exam - Exam Exam: See Below - Vital Signs Vital Signs: Last Vital Signs Temp 36.7 C 10/24/21 06:31 Pulse 105 H 10/24/21 06:34 Resp 20 10/24/21 06:34 BP 127/73 10/24/21 06:34 Pulse Ox 99 10/24/21 06:34 Weight: 105.687 kg - Exam Quality Assessment: Supplemental Oxygen General: Alert, Oriented, Cooperative. No: Mild Distress HEENT: Conjunctiva Clear. No: Mucosa Moist & [place] (Dry), Scleral Icterus Neck: Supple, Trachea Midline Lungs: Clear to Auscultation, Normal Respiratory Effort Cardiovascular: Regular Rate, Regular Rhythm. No: Systolic Murmur GI/Abdominal Exam: Normal Bowel Sounds, Soft, Non-Tender, No Distention, Other (Colostomy left lower quadrant) Extremities: No Pedal Edema, Other (Status post remote amputation of the toes on the left foot. Right foot has 2 ulcers on the plantar surface with no surrounding erythema and no obvious fluctuance or drainage.). No: Increased Warmth Peripheral Pulses: 1+: Dorsalis Pedis (L), Dorsalis Pedis (R) Skin: Warm, Dry Neuro Extensive - Mental Status: Alert, Oriented x3, Nl Response to Commands Neuro Extensive - Motor, Sensory, Reflexes: No: Dysarthria, Abnormal Motor, Tremor Psychiatric: Alert, Normal Affect - Patient Data Lab Results Last 24 hrs: Laboratory Results - last 24 hr 10/24/21 10/24/21 10/24/21 Range/Units 04:01 04:01 04:01 WBC 27.4 H (4.5-11.0) K/uL RBC 1.93 L (4.30-5.90) M/uL Hgb 5.2 L* D (12.0-15.0) g/dL Hct 16.8 L (40.0-54.0) % MCV 87 (80-98) fL MCH 27 (27-31) pg MCHC 31 L (32-36) % Plt Count 501 H (150-400) K/uL Neut % (Auto) 86.4 H (36-66) % Lymph % (Auto) 10.1 L (24-44) % [place] % (Auto) 2.9 (2-6) % Eos % (Auto) 0.3 L (2-4) % Baso % (Auto) 0.3 (0-1) % PT (9.2-10.6) sec INR Sodium 135 L (140-148) mmol/L Potassium 5.6 H (3.6-5.2) mmol/L Chloride 105 (100-108) mmol/L Carbon Dioxide 14 L (21-32) mmol/L Anion Gap 21.6 H (5.0-14.0) mmol/L BUN 69 H D (7-18) mg/dL Creatinine 1.6 H (0.8-1.3) mg/dL Est Cr Clr Drug Dosing 47.07 mL/min Estimated GFR (MDRD) 45 L (>60) Glucose 411 H* (74-106) mg/dL POC Glucose (74-106) mg/dL Calcium 7.2 L (8.5-10.1) mg/dL Total Bilirubin 0.2 (0.2-1.0) mg/dL AST 10 L (15-37) U/L ALT 13 (12-78) U/L Alkaline Phosphatase 66 (46-116) U/L Total Protein 5.6 L (6.4-8.2) g/dL Albumin 1.8 L (3.4-5.0) g/dL Globulin 3.8 H (2.3-3.5) g/dL Albumin/Globulin Ratio 0.5 L (1.2-2.2) Influenza Type A RNA (NEGATIVE) RSV RNA (INAAT) (NEGATIVE) Influenza Type B RNA (NEGATIVE) SARS-CoV-2 RNA (ЕКАТЕРИНА) (NEGATIVE) Blood Type O POSITIVE Gel Antibody Screen Negative Crossmatch See Detail 10/24/21 10/24/21 10/24/21 Range/Units 04:01 05:59 06:07 WBC (4.5-11.0) K/uL RBC (4.30-5.90) M/uL Hgb (12.0-15.0) g/dL Hct (40.0-54.0) % MCV (80-98) fL MCH (27-31) pg MCHC (32-36) % Plt Count (150-400) K/uL Neut % (Auto) (36-66) % Lymph % (Auto) (24-44) % [place] % (Auto) (2-6) % Eos % (Auto) (2-4) % Baso % (Auto) (0-1) % PT 11.3 H (9.2-10.6) sec INR 1.1 Sodium (140-148) mmol/L Potassium (3.6-5.2) mmol/L Chloride (100-108) mmol/L Carbon Dioxide (21-32) mmol/L Anion Gap (5.0-14.0) mmol/L BUN (7-18) mg/dL Creatinine (0.8-1.3) mg/dL Est Cr Clr Drug Dosing mL/min Estimated GFR (MDRD) (>60) Glucose (74-106) mg/dL POC Glucose 243 H (74-106) mg/dL Calcium (8.5-10.1) mg/dL Total Bilirubin (0.2-1.0) mg/dL AST (15-37) U/L ALT (12-78) U/L Alkaline Phosphatase (46-116) U/L Total Protein (6.4-8.2) g/dL Albumin (3.4-5.0) g/dL Globulin (2.3-3.5) g/dL Albumin/Globulin Ratio (1.2-2.2) Influenza Type A RNA Negative (NEGATIVE) RSV RNA (INAAT) Negative (NEGATIVE) Influenza Type B RNA Negative (NEGATIVE) SARS-CoV-2 RNA (ЕКАТЕРИНА) Negative (NEGATIVE) Blood Type Gel Antibody Screen Crossmatch Result Diagrams: 10/24/21 04:01 10/24/21 04:01 Salvatore Results Last 24 hrs: Microbiology 10/24/21 04:38 Stool Occult Blood (SALVATORE) - Final Stool / Feces Imaging Impressions Last 24 hrs: Chest x-ray-image personally reviewed-lungs are clear with no mass, infiltrate or effusion. Heart size is normal. Sepsis Event Note - Evaluation Sepsis Screening Result: Possible Sepsis Risk - Focused Exam Vital Signs: Vital Signs Temp Temp Pulse Resp BP BP Pulse Ox 10/24/21 06:34 105 H 20 127/73 99 10/24/21 06:31 36.7 C 105 H 14 112/70 98 10/24/21 06:29 36.4 C 107 H 25 H 127/73 96 10/24/21 06:22 100 19 77/54 L 98 10/24/21 06:17 36.5 C 112 H 17 70/28 L 98 10/24/21 06:09 113 H 18 92/44 L 97 10/24/21 05:47 115 H 86/40 L 10/24/21 05:21 101 H 17 97/48 L 10/24/21 04:47 105 H 18 99/49 L 10/24/21 03:43 36.3 C 110 H 18 70/39 L 99 *Q Meaningful Use (ADM) - VTE *Q VTE Pharmacological Contraindications *Q: Active Hemorrhage - VTE Risk Assess *Q Each Risk Factor Represents 1 Point: Age 41 - 59 years, Obesity ( BMI > 25 kg/m2 ) Total Score 1 Point Risk Factors: 2 Each Risk Factor Represents 2 Points: Malignancy (present or previous) Total Score 2 Point Risk Factors: 2 Each Risk Factor Represents 3 Points: History of DVT/PE Total Score 3 Point Risk Factors: 3 Each Risk Factor Represents 5 Points: None Total Score 5 Point Risk Factors: 0 Venous Thromboembolism Risk Factor Score *Q: 7 - Problem List (1) Acute gastrointestinal hemorrhage SNOMED Code(s): 27246036 ICD Code: K92.2 - GASTROINTESTINAL HEMORRHAGE, UNSPECIFIED Status: Acute Current Visit: Yes (2) Anemia due to gastrointestinal blood loss SNOMED Code(s): 002886127, 728003132 ICD Code: D50.0 - IRON DEFICIENCY ANEMIA SECONDARY TO BLOOD LOSS (CHRONIC) Status: Acute Current Visit: Yes (3) Acute kidney injury SNOMED Code(s): 81244659, 90250957 ICD Code: N17.9 - ACUTE KIDNEY FAILURE, UNSPECIFIED Status: Acute Current Visit: Yes (4) Poorly controlled type 2 diabetes mellitus SNOMED Code(s): 02735666, 721403875 ICD Code: E11.65 - TYPE 2 DIABETES MELLITUS WITH HYPERGLYCEMIA Status: Acute Current Visit: Yes (5) Acute urinary retention SNOMED Code(s): 652897390 ICD Code: R33.8 - OTHER RETENTION OF URINE Status: Acute Current Visit: Yes (6) Hyperkalemia SNOMED Code(s): 47207038 ICD Code: E87.5 - HYPERKALEMIA Status: Acute Current Visit: Yes Problem List Initiated/Reviewed/Updated: Yes Orders Last 24hrs: Active Orders 24 hr Category Date Time Status Patient Status Manage Transfer [TRANSFER] Routine ADT 10/24/21 06:51 Ordered Insert Sahni Catheter [Insert Urinary Catheter] [OM.PC] Care 10/24/21 05:15 Ordered Q24H Urinary Catheter Assessment [RC] ASDIRECTED Care 10/24/21 05:08 Active Chest 1V Frontal [CR] Stat Exams 10/24/21 05:33 Taken PATIENT RETYPE [BBK] Stat Lab 10/24/21 04:01 Results RED BLOOD CELLS LP [BBK] Stat Lab 10/24/21 04:01 Results TYPE AND SCREEN [BBK] Stat Lab 10/24/21 04:01 Results Sodium Chloride 0.9% [Normal Saline] 1,000 ml Med 10/24/21 04:30 Active IV ASDIRECTED Sodium Chloride 0.9% [Normal Saline] 1,000 ml Med 10/24/21 06:30 Active IV ASDIRECTED Isolation [COMM] Stat Oth 10/24/21 05:59 Ordered Resuscitation Status Routine Resus Stat 10/24/21 06:54 Ordered Medication Orders Sodium Chloride (Normal Saline) 1,000 mls @ 500 mls/hr IV ASDIRECTED [facility] Last Admin: 10/24/21 04:18 Dose: 500 mls/hr Documented by: GLENNA Sodium Chloride (Normal Saline) 1,000 mls @ 1,000 mls/hr IV ASDIRECTED [facility] Last Admin: 10/24/21 06:27 Dose: 1,000 mls/hr Documented by: OSMANI Assessment/Plan Comment:: ASSESSMENT AND PLAN - Acute gastrointestinal hemorrhage, suspect upper GI bleed-complicated by anemia due to blood loss. Hemoglobin yesterday was 7.7 and now down below 6. He now has black tarry stool in his colostomy. No history of GI bleeding. Initially hypotensive but has responded to fluids and blood transfusion. -Complete transfusion of 2 units of blood -Recheck hemoglobin this afternoon -Continue IV fluids -IV PPI -Surgical consultation for EGD Poorly controlled type 2 diabetes mellitus-complicated by vascular issues and neuropathy. Chronic pain because of the neuropathy. He is on large doses of insulin. Initially quite hyperglycemic but received a large dose of IV insulin in the emergency room and is now hypoglycemic. -Hold long-acting insulins until blood sugars stabilize Acute kidney injury-Baseline creatinine of around 1 and now has a creatinine of 1.6. I would anticipate this will improve with optimization of volume status. -Management as above and repeat labs in the morning Hyperkalemia-mild. I would anticipate this will improve with fluids and management as above. -Repeat potassium this afternoon Acute urinary retention-unable to pass urine in the emergency room. Bladder scan revealed more than 800 mL of fluid in the bladder. Sahni catheter was placed. Maintenance issues - -DVT prophylaxis-mechanical with active hemorrhage -GI prophylaxis-PPI -Nutrition-clear liquids -Sahni catheter-placed for acute urinary retention CODE STATUS -full code Admission justification -this patient will be admitted for inpatient services and is medically appropriate meeting medical necessity for inpatient admission as outlined in my documentation. I reasonably expect the patient will require inpatient services that span a period time over 2 midnights. I reasonably expect this patient to be discharged or transferred within 96 hours [facility]. Disposition -I anticipate discharge home after the hospital stay Primary care physician -no local primary care Toni Ricketts M.D. - Mortality Measure Prognosis:: Good
[2021-10-24] MEDS ORDERED: Albuterol 0.083% 2.5 MG/3 ML Neb Soln NEB PRN (07:29)
[2021-10-24] MEDS ORDERED: LORazepam 2 MG/ML SDV IVPUSH PRN (07:29)
[2021-10-24] MEDS ORDERED: Magnesium Hydroxide 400 MG/5 ML Susp 30 ML Cup PO PRN (07:29)
[2021-10-24] MEDS ORDERED: Cyclobenzaprine 10 MG Tab PO PRN (07:29)
[2021-10-24] MEDS ORDERED: Ondansetron 4 MG/2 ML SDV IV PRN (07:29)
[2021-10-24] MEDS ORDERED: Acetaminophen 325 MG Tab PO PRN (07:29)
[2021-10-24] MEDS ORDERED: Ondansetron 4 MG Tab.DIS PO PRN (07:29)
[2021-10-24] MEDS: HYDROmorphone 1 MG/ML Syringe IVPUSH PRN (08:04)
[2021-10-24] MEDS: Rosuvastatin 10 MG Tab PO SCH (08:35)
[2021-10-24] MEDS: DULoxetine 30 MG Cap PO SCH (08:35)
[2021-10-24] MEDS: Tamsulosin 0.4 MG Cap.ER PO SCH (08:36)
[2021-10-24] MEDS: Gabapentin 300 MG Cap PO SCH ×3 (08:36→20:57)
[2021-10-24] MEDS: Insulin Lispro 100 Unit/ML 3 ML KwikPen SUBCUT SCH ×6 (08:39→20:54)
[2021-10-24] MEDS ORDERED: 50% Dextrose in Water 50 ML Syringe IVPUSH ONE (09:09)
[2021-10-24] MEDS ORDERED: 50% Dextrose in Water 50 ML Syringe ONE (09:12)
[2021-10-24] MEDS: Aspirin 81 MG Tab.EC PO SCH (09:18)
[2021-10-24] MEDS: Insulin Glargine,Human Rec. Analog 100 Units/ML 3 ML Pen SUBCUT SCH ×2 (09:18→11:10)
[2021-10-24] MEDS ORDERED: HYDROmorphone 1 MG/ML Syringe IVPUSH ONE (10:15)
[2021-10-24] MEDS ORDERED: Alum Hydrox/Mag Hydrox/Simeth 15 ML, Lidocaine 2% 15 ML PO ONE ×2 (10:15)
--- NOTE | 2021-10-24 10:56 | PCM.SN.2 ---
- Free Text/Narrative Note: Earlier this morning after admission the patient reported acute onset of severe right-sided chest pain. This was associated with some dyspnea. Vital signs were similar to previous. An EKG was obtained and did show some ST depressions in V3 through V6. High-sensitivity troponin level was obtained and found to be elevated at 641. A second EKG was obtained which showed a slight improvement in the ST depressions. Patient has received 324 mg of aspirin. Called [facility] and [facility] to see about transfer and no beds are available at this time. 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 We will continue to monitor and treat him here until a bed is available for transfer. Repeat troponin planned in 3 hours. Unable to start heparin drip because of active gastrointestinal hemorrhage. Toni Ricketts MD
[2021-10-24] MEDS ORDERED: Aspirin 81 MG Tab.Chew PO ONE (11:00)
[2021-10-24] MEDS: Acetaminophen/oxyCODONE 325-5 MG Tab PO PRN ×3 (13:38→23:30)
[2021-10-24] MEDS: Pantoprazole 40 MG Vial IV SCH (17:19)
[2021-10-24] MEDS ORDERED: Melatonin 3 MG Tab PO SCH (21:00)
[2021-10-25] MEDS: HYDROmorphone 1 MG/ML Syringe IVPUSH PRN ×2 (02:44→06:51)
[2021-10-25] MEDS: Pantoprazole 40 MG Vial IV SCH (05:38)
[2021-10-25] MEDS: Insulin Lispro 100 Unit/ML 3 ML KwikPen SUBCUT SCH ×4 (07:27→11:09)
[2021-10-25] MEDS ORDERED: Midazolam 1 MG/ML 2 ML SDV ONE (08:43)
[2021-10-25] MEDS ORDERED: fentaNYL 100 MCG/2 ML SDV ONE (08:43)
[2021-10-25] MEDS ORDERED: Propofol 200 MG/20 ML SDV ONE (08:43)
--- NOTE | 2021-10-25 09:31 | CR ---
CHEST: Portable 10/24/2021 CLINICAL HISTORY:SOB COMPARISON:None FINDINGS: There is a poor inspiratory level. This exaggerates the heart size and lung markings. There may be some borderline cardiomegaly. There are atherosclerotic changes in the aorta. There are old rib fractures on the right. Impression: Limited study due to poor inspiratory level No infiltrates are seen
[2021-10-25] MEDS: Insulin Glargine,Human Rec. Analog 100 Units/ML 3 ML Pen SUBCUT SCH (10:15)
[2021-10-25] MEDS: Tamsulosin 0.4 MG Cap.ER PO SCH (10:21)
[2021-10-25] MEDS: DULoxetine 30 MG Cap PO SCH (10:21)
[2021-10-25] MEDS: Rosuvastatin 10 MG Tab PO SCH (10:21)
[2021-10-25] MEDS: Aspirin 81 MG Tab.EC PO SCH (10:21)
[2021-10-25] MEDS: Gabapentin 300 MG Cap PO SCH ×2 (10:21→14:49)
--- NOTE | 2021-10-25 16:14 | PCM.DCSUM1 ---
Discharge Summary - Hospital Course Brief History: Mr. Blackwell is a 56-year-old gentleman who was admitted through the emergency department with dizziness and weakness secondary to acute blood loss anemia and GI bleed. - Discharge Data Discharge Date: 10/25/21 Discharge Disposition: Home, Self-Care 01 Condition: Serious - Referral to Home Health Primary Care Physician: PCP None - Discharge Diagnosis/Problem(s) (1) Non-ST elevated myocardial infarction SNOMED Code(s): 54049541 ICD Code: I21.4 - NON-ST ELEVATION (NSTEMI) MYOCARDIAL INFARCTION Status: Acute Current Visit: Yes (2) Poorly controlled type 2 diabetes mellitus SNOMED Code(s): 52775197, 387886566 ICD Code: E11.65 - TYPE 2 DIABETES MELLITUS WITH HYPERGLYCEMIA Status: Acute Current Visit: Yes (3) Anemia due to gastrointestinal blood loss SNOMED Code(s): 316299580, 219778396 ICD Code: D50.0 - IRON DEFICIENCY ANEMIA SECONDARY TO BLOOD LOSS (CHRONIC) Status: Acute Current Visit: Yes (4) Acute urinary retention SNOMED Code(s): 430573717 ICD Code: R33.8 - OTHER RETENTION OF URINE Status: Acute Current Visit: Yes (5) Acute gastrointestinal hemorrhage SNOMED Code(s): 14471827 ICD Code: K92.2 - GASTROINTESTINAL HEMORRHAGE, UNSPECIFIED Status: Acute Current Visit: Yes (6) Acute kidney injury SNOMED Code(s): 09227948, 45657806 ICD Code: N17.9 - ACUTE KIDNEY FAILURE, UNSPECIFIED Status: Acute Current Visit: Yes (7) Hyperkalemia SNOMED Code(s): 05782722 ICD Code: E87.5 - HYPERKALEMIA Status: Acute Current Visit: Yes - Patient Summary/Data Hospital Course: Mr. Blackwell presented to the emergency room with weakness and dizziness. He was seen in the emergency room the day prior to admission for high blood sugars. These were managed with insulin and he felt well enough to go home. Overnight he developed fairly sudden onset of weakness and dizziness. He did note that the output in his colostomy was dark brown or black which was different than it had been. Blood sugars have been running high at home despite large doses of insulin yesterday. Work-up in the emergency room revealed a 2 g drop in his hemoglobin down to 5.2 from 7.7 yesterday. He has an increase in his creatinine from baseline up to 1.6 with a baseline of around 1. He has hyperglycemia. He was transfused 2 units of red blood cells while in the emergency department. He has received IV fluids. Blood pressures initially were on the low side but improved with IV fluids and the blood transfusions. After admission he continued to receive IV fluids and the plan had been for upper GI endoscopy the following day. Shortly after admission he developed chest pain and was noted to have ST segment depression in the anterolateral leads. Troponin level was obtained in the high-sensitivity troponin was elevated at 600. Pain resolved with management and did not recur during the rest of his hospital stay. Serial troponin levels increased and on the morning of transfer troponin level was 3000. He was not placed on IV heparin because of his acute GI bleed and anemia. EGD was canceled because of the non-ST segment elevation myocardial infarction. Serial hemoglobin levels were obtained and he was transfused an additional 2 units of red blood cells after admission. Hemoglobin remained stable on the day of transfer with no further evidence of active bleeding. Renal function improved with IV fluids given overnight. Because of his acute non-ST segment elevation myocardial infarction as well as GI bleed requiring further evaluation he will be transferred to [facility] for further subspecialty evaluation and management. He will be transferred via [facility] ambulance. - Patient Instructions Diet: Clear Liquid Diet Activity: As Tolerated Other/Special Instructions: Transferred to [facility] via [facility] - Discharge Plan *PRESCRIPTION DRUG MONITORING PROGRAM REVIEWED*: Not Applicable *COPY OF PRESCRIPTION DRUG MONITORING REPORT IN PATIENT RAH: Not Applicable Home Medications: Home Meds Aspirin [Adult Low Dose Aspirin EC] 81 mg PO DAILY 10/23/21 [History] Cyclobenzaprine [Flexeril] 10 mg PO TID PRN 10/23/21 [History] DULoxetine [Cymbalta] 60 mg PO DAILY 10/23/21 [History] Ferrous Sulfate 325 mg PO DAILY 10/23/21 [History] Fluticasone Propionate [Flovent] 2 puff IH DAILY 10/23/21 [History] Insulin Aspart [NovoLOG] 10 unit SQ WITHMEALSANDBED 10/23/21 [History] Insulin Glargine,Hum.Rec.Anlog [Lantus Solostar] 106 unit SQ ASDIRECTED 10/23/21 [History] Loperamide [Imodium] 2 mg PO Q4H PRN 10/23/21 [History] Magnesium Oxide 400 mg PO DAILY 10/23/21 [History] Melatonin 5 mg PO BEDTIME 10/23/21 [History] Metoprolol Succinate [Toprol XL] 25 mg PO DAILY 10/23/21 [History] Naproxen 500 mg PO DAILY PRN 10/23/21 [History] Rosuvastatin [Crestor] 10 mg PO DAILY 10/23/21 [History] SitaGLIPtin [Januvia] 100 mg PO DAILY 10/23/21 [History] Tamsulosin [Flomax] 0.4 mg PO DAILY 10/23/21 [History] Telmisartan 80 mg PO DAILY 10/23/21 [History] dilTIAZem HCL [Cartia Xt] 120 mg PO DAILY 10/23/21 [History] metFORMIN [Glucophage] 500 mg PO BIDMEALS 10/23/21 [History] oxyCODONE HCl/Acetaminophen [Oxycodone-Acetaminophen 5-325] 1 tab PO BEDTIME 10/23/21 [History] Pantoprazole [ProTONIX IV] 40 mg IV Q12H vial 10/25/21 [Rx] Referrals: PCP,None [Primary Care Provider] - - Discharge Summary/Plan Comment DC Time >30 min.: No Total # of Minutes for Discharge Time: 25 - Patient Data Vitals - Most Recent: Last Vital Signs Temp 98.1 F 10/25/21 07:00 Pulse 91 10/25/21 15:00 Resp 16 10/25/21 15:00 BP 152/84 H 10/25/21 15:00 Pulse Ox 98 10/25/21 15:00 Weight - Most Recent: 252 lb 6.4 oz I&O - Last 24 hours: Intake & Output 10/25/21 10/25/21 10/25/21 06:59 14:59 22:59 Intake Total 1966 390 Output Total 1800 Balance 166 390 Lab Results - Last 24 hrs: Laboratory Results - last 24 hr 10/24/21 10/24/21 10/24/21 Range/Units 04:01 15:06 17:13 WBC (4.5-11.0) K/uL RBC (4.30-5.90) M/uL Hgb 6.6 L* (12.0-15.0) g/dL Hct (40.0-54.0) % MCV (80-98) fL MCH (27-31) pg MCHC (32-36) % Plt Count (150-400) K/uL Sodium (140-148) mmol/L Potassium (3.6-5.2) mmol/L Chloride (100-108) mmol/L Carbon Dioxide (21-32) mmol/L Anion Gap (5.0-14.0) mmol/L BUN (7-18) mg/dL Creatinine (0.8-1.3) mg/dL Est Cr Clr Drug Dosing mL/min Estimated GFR (MDRD) (>60) Glucose (74-106) mg/dL POC Glucose 268 H (74-106) mg/dL Calcium (8.5-10.1) mg/dL POC WB Ioniz Calcium (1.12-1.32) mmol/L Troponin I High Sens (<=60.3) pg/mL Blood Type O POSITIVE Gel Antibody Screen Negative Crossmatch See Detail 10/24/21 10/24/21 10/24/21 Range/Units 20:46 20:51 21:59 WBC (4.5-11.0) K/uL RBC (4.30-5.90) M/uL Hgb (12.0-15.0) g/dL Hct (40.0-54.0) % MCV (80-98) fL MCH (27-31) pg MCHC (32-36) % Plt Count (150-400) K/uL Sodium (140-148) mmol/L Potassium (3.6-5.2) mmol/L Chloride (100-108) mmol/L Carbon Dioxide (21-32) mmol/L Anion Gap (5.0-14.0) mmol/L BUN (7-18) mg/dL Creatinine (0.8-1.3) mg/dL Est Cr Clr Drug Dosing mL/min Estimated GFR (MDRD) (>60) Glucose (74-106) mg/dL POC Glucose 220 H 220 H (74-106) mg/dL Calcium (8.5-10.1) mg/dL POC WB Ioniz Calcium (1.12-1.32) mmol/L Troponin I High Sens 3062.2 H* (<=60.3) pg/mL Blood Type Gel Antibody Screen Crossmatch 10/24/21 10/25/21 10/25/21 Range/Units 21:59 04:25 04:25 WBC 15.6 H (4.5-11.0) K/uL RBC 3.13 L (4.30-5.90) M/uL Hgb 7.4 L 8.8 L (12.0-15.0) g/dL Hct 27.3 L (40.0-54.0) % MCV 87 (80-98) fL MCH 28 (27-31) pg MCHC 32 (32-36) % Plt Count 317 (150-400) K/uL Sodium 141 (140-148) mmol/L Potassium 3.8 (3.6-5.2) mmol/L Chloride 111 H (100-108) mmol/L Carbon Dioxide 22 (21-32) mmol/L Anion Gap 11.8 (5.0-14.0) mmol/L BUN 27 H D (7-18) mg/dL Creatinine 0.9 (0.8-1.3) mg/dL Est Cr Clr Drug Dosing 89.72 mL/min Estimated GFR (MDRD) > 60 (>60) Glucose 79 (74-106) mg/dL POC Glucose (74-106) mg/dL Calcium 7.2 L (8.5-10.1) mg/dL POC WB Ioniz Calcium (1.12-1.32) mmol/L Troponin I High Sens 4040.9 H* (<=60.3) pg/mL Blood Type Gel Antibody Screen Crossmatch 10/25/21 10/25/21 10/25/21 Range/Units 07:22 08:52 11:07 WBC (4.5-11.0) K/uL RBC (4.30-5.90) M/uL Hgb (12.0-15.0) g/dL Hct (40.0-54.0) % MCV (80-98) fL MCH (27-31) pg MCHC (32-36) % Plt Count (150-400) K/uL Sodium (140-148) mmol/L Potassium (3.6-5.2) mmol/L Chloride (100-108) mmol/L Carbon Dioxide (21-32) mmol/L Anion Gap (5.0-14.0) mmol/L BUN (7-18) mg/dL Creatinine (0.8-1.3) mg/dL Est Cr Clr Drug Dosing mL/min Estimated GFR (MDRD) (>60) Glucose (74-106) mg/dL POC Glucose 77 78 89 (74-106) mg/dL Calcium (8.5-10.1) mg/dL POC WB Ioniz Calcium (1.12-1.32) mmol/L Troponin I High Sens (<=60.3) pg/mL Blood Type Gel Antibody Screen Crossmatch 10/25/21 10/25/21 10/25/21 Range/Units 13:00 13:03 13:03 WBC (4.5-11.0) K/uL RBC (4.30-5.90) M/uL Hgb 8.6 L (12.0-15.0) g/dL Hct (40.0-54.0) % MCV (80-98) fL MCH (27-31) pg MCHC (32-36) % Plt Count (150-400) K/uL Sodium (140-148) mmol/L Potassium (3.6-5.2) mmol/L Chloride (100-108) mmol/L Carbon Dioxide (21-32) mmol/L Anion Gap (5.0-14.0) mmol/L BUN (7-18) mg/dL Creatinine (0.8-1.3) mg/dL Est Cr Clr Drug Dosing mL/min Estimated GFR (MDRD) (>60) Glucose (74-106) mg/dL POC Glucose (74-106) mg/dL Calcium (8.5-10.1) mg/dL POC WB Ioniz Calcium 1.12 (1.12-1.32) mmol/L Troponin I High Sens 2652.5 H* (<=60.3) pg/mL Blood Type Gel Antibody Screen Crossmatch Med Orders - Current: Current Medications Acetaminophen (Acetaminophen 325 Mg Tab) 650 mg PO Q4H PRN PRN Reason: Pain (Mild 1-3)/fever Albuterol (Albuterol 0.083% 2.5 Mg/3 Ml Neb Soln) 2.5 mg NEB Q4H PRN PRN Reason: Shortness Of Breath/wheezing Aspirin (Aspirin 81 Mg Tab.Ec) 81 mg PO DAILY [facility] Last Admin: 10/25/21 10:21 Dose: 81 mg Documented by: Cyclobenzaprine HCl (Cyclobenzaprine 10 Mg Tab) 10 mg PO TID PRN PRN Reason: Spasms Duloxetine HCl (Duloxetine 30 Mg Cap) 60 mg PO DAILY [facility] Last Admin: 10/25/21 10:21 Dose: 60 mg Documented by: Gabapentin (Gabapentin 300 Mg Cap) 300 mg PO TID [facility] Last Admin: 10/25/21 14:49 Dose: 300 mg Documented by: Hydromorphone HCl (Hydromorphone 1 Mg/Ml Syringe) 0.5 mg IVPUSH Q2H PRN PRN Reason: Pain (severe 7-10) Last Admin: 10/25/21 06:51 Dose: 0.5 mg Documented by: Insulin Glargine (Insulin Glargine,Human Rec. Analog 100 Units/Ml 3 Ml Pen) 70 units SUBCUT DAILY [facility] Insulin Human Lispro (Insulin Lispro 100 Unit/Ml 3 Ml Kwikpen) 0 unit SUBCUT QIDACANDBED [facility]; Protocol Last Admin: 10/25/21 11:09 Dose: Not Given Documented by: Lorazepam (Lorazepam 2 Mg/Ml Sdv) 0.5 mg IVPUSH Q4H PRN PRN Reason: Nausea/Vomiting Magnesium Hydroxide (Magnesium Hydroxide 400 Mg/5 Ml Susp 30 Ml Cup) 30 ml PO Q12H PRN PRN Reason: Constipation Melatonin (Melatonin 3 Mg Tab) 9 mg PO BEDTIME [facility] Last Admin: 10/24/21 20:57 Dose: 9 mg Documented by: Ondansetron HCl (Ondansetron 4 Mg/2 Ml Sdv) 4 mg IV Q6H PRN PRN Reason: Nausea/Vomiting Ondansetron HCl (Ondansetron 4 Mg Tab.Dis) 4 mg PO Q6H PRN PRN Reason: Nausea able to take PO Oxycodone/Acetaminophen (Acetaminophen/Oxycodone 325-5 Mg Tab) 1 tab PO Q4H PRN PRN Reason: Pain (moderate 4-6) Last Admin: 10/24/21 23:30 Dose: 1 tab Documented by: Pantoprazole Sodium (Pantoprazole 40 Mg Vial) 40 mg IV Q12H [facility] Last Admin: 10/25/21 05:38 Dose: 40 mg Documented by: Rosuvastatin Calcium (Rosuvastatin 10 Mg Tab) 10 mg PO DAILY [facility] Last Admin: 10/25/21 10:21 Dose: 10 mg Documented by: Senna/Docusate Sodium (Docusate Sodium/Sennosides 50-8.6 Mg Tab) 1 tab PO BID PRN PRN Reason: Constipation Tamsulosin HCl (Tamsulosin 0.4 Mg Cap.Er) 0.4 mg PO DAILY [facility] Last Admin: 10/25/21 10:21 Dose: 0.4 mg Documented by: Discontinued Medications Aspirin (Aspirin 81 Mg Tab.Chew) 243 mg PO ONETIME ONE Stop: 10/24/21 11:01 Last Admin: 10/24/21 10:47 Dose: 243 mg Documented by: Al Hydroxide/Mg Hydroxide 15 (ml/ Lidocaine HCl 15 ml) 0 ml PO ONETIME ONE Stop: 10/24/21 10:16 Last Admin: 10/24/21 10:00 Dose: 1 ml Documented by: Dextrose/Water (50% Dextrose In Water 50 Ml Syringe) 50 ml IVPUSH ONETIME ONE Stop: 10/24/21 09:10 Last Admin: 10/24/21 09:15 Dose: 50 ml Documented by: Dextrose/Water (50% Dextrose In Water 50 Ml Syringe) Confirm Administered Dose 50 ml .ROUTE .STK-MED ONE Stop: 10/24/21 09:13 Last Admin: 10/24/21 09:15 Dose: Not Given Documented by: Hydromorphone HCl (Hydromorphone 1 Mg/Ml Syringe) 1 mg IVPUSH ONETIME ONE Stop: 10/24/21 10:16 Last Admin: 10/24/21 09:59 Dose: 1 mg Documented by: Sodium Chloride (Normal Saline) 1,000 mls @ 500 mls/hr IV ASDIRECTED [facility] Last Admin: 10/24/21 04:18 Dose: 500 mls/hr Documented by: Sodium Chloride (Normal Saline) 1,000 mls @ 1,000 mls/hr IV ASDIRECTED [facility] Last Admin: 10/24/21 06:27 Dose: 1,000 mls/hr Documented by: Sodium Chloride (Normal Saline) 1,000 mls @ 100 mls/hr IV ASDIRECTED [facility] Last Admin: 10/24/21 08:03 Dose: 100 mls/hr Documented by: Insulin Glargine (Insulin Glargine,Human Rec. Analog 100 Units/Ml 3 Ml Pen) 106 units SUBCUT DAILY [facility] Last Admin: 10/25/21 10:15 Dose: Not Given Documented by: Insulin Human Lispro (Insulin Lispro 100 Unit/Ml 3 Ml Kwikpen) 10 unit SUBCUT TIDMEALS [facility] Last Admin: 10/25/21 11:09 Dose: Not Given Documented by: Insulin Human Regular (Insulin Regular, Human 100 Units/Ml 3 Ml Vial) 112 unit IVPUSH ONETIME ONE Stop: 10/24/21 05:04 Last Admin: 10/24/21 05:23 Dose: 112 units Documented by: Lorazepam (Lorazepam 2 Mg/Ml Sdv) 1 mg IVPUSH ONETIME ONE Stop: 10/24/21 05:53 Last Admin: 10/24/21 05:57 Dose: 1 mg Documented by: Pantoprazole Sodium (Pantoprazole 40 Mg Vial) 40 mg IVPUSH ONETIME ONE Stop: 10/24/21 05:09 Last Admin: 10/24/21 05:22 Dose: 40 mg Documented by: - Exam General: Reports: Alert, Oriented, Cooperative, Moderate Distress Lungs: Reports: Clear to Auscultation, Normal Respiratory Effort, Decreased Breath Sounds Cardiovascular: Reports: Regular Rate, Regular Rhythm, No Murmurs GI/Abdominal Exam: Soft, Non-Tender, No Organomegaly, No Distention Extremities: Non-Tender, No Pedal Edema *Q Meaningful Use (DIS) - VTE *Q VTE Pharmacological Contraindications *Q: Active Hemorrhage
--- NOTE | 2021-10-25 17:35 | PCM.EKG ---
#1 Interpretation EKG Date: 10/24/21 Time: 09:40 Rhythm: NSR Rate (Beats/Min): 106 [place]: Normal P-Wave: Present QRS: Normal ST-T: Depressed (Anteroseptal leads and limb lead II) QT: Normal Comparison: NA - No Prior EKG EKG Interpretation Comments: Possible ischemia, with ST segment changes as described above #2 Interpretation EKG Date: 10/24/21 Time: 10:50 Rhythm: Other (Sinus tachycardia) Rate (Beats/Min): 105 [place]: Normal P-Wave: Present QRS: Normal ST-T: Depressed (ST segment depression improved from previous EKG) QT: Normal Comparison: Change From Previous EKG EKG Interpretation Comments: ST segment depression noted on previous EKG has essentially resolved
[2021-10-26] MEDS ORDERED: Insulin Glargine,Human Rec. Analog 100 Units/ML 3 ML Pen SUBCUT SCH (09:00)
== END 2021-10-25 16:29 | DRG 377 ==
LOC: JP.ED 03:28 → JP.ICU 06:51
PROVIDERS: ADMIT Internal Medicine; ATTEND Hospitalist
PROC: 30233N1 Transfusion of Nonautologous Red Blood Cells into Peripheral Vein, Percutaneous Approach (ICD-10-PCS; principal; 2021-10-24)
DX: K92.2 Gastrointestinal hemorrhage, unspecified (principal); I21.4 Non-ST elevation (NSTEMI) myocardial infarction; D62 Acute posthemorrhagic anemia; N17.9 Acute kidney failure, unspecified; E11.65 Type 2 diabetes mellitus with hyperglycemia; R33.8 Other retention of urine; E87.5 Hyperkalemia; E11.21 Type 2 diabetes mellitus with diabetic nephropathy; I10 Essential (primary) hypertension; G89.29 Other chronic pain; M54.9 Dorsalgia, unspecified; E11.42 Type 2 diabetes mellitus with diabetic polyneuropathy; E66.9 Obesity, unspecified; Z79.01 Long term (current) use of anticoagulants; Z85.038 Personal history of other malignant neoplasm of large intestine; Z79.82 Long term (current) use of aspirin; Z79.4 Long term (current) use of insulin; Z79.899 Other long term (current) drug therapy; Z90.49 Acquired absence of other specified parts of digestive tract; Z89.422 Acquired absence of other left toe(s); Z68.38 Body mass index [BMI] 38.0-38.9, adult; Z20.822 Contact with and (suspected) exposure to COVID-19
CPT/HCPCS: 0241U; 36415; 36430; 51702; 71045; 71045-26; 80048; 80053; 81001; 82272; 82330; 82947; 84132; 84484; 85018; 85025; 85027; 85610; 86850; 86900; 86901; 86920; 86922; 93005; 96374; 96375; 99285-25; A9270-GY; C9113; J1170; J1815; J1815-GY; J2060; J2250; J2704; J3010; J7030; P9016